=== PATIENT | female | born 1985 | race Caucasian/White ===

== ENCOUNTER 2016-06-18 16:58 | Emergency (ER) | payer MEDICAID ==
[~2016-06-18] VITALS: Ht 165.1 cm; Wt 49.9 kg
[~2016-06-18 16:58] MED LIST: ALBUAER3 IN; AZITTAB11 PO; CARI-277 PO; DEXTSYP35 PO; IBUP800T24 PO; LEVE500T3 PO; METH4PAK PO
[2016-06-18 17:27] VITALS: BP 128/77
== END 2016-06-18 17:36 | disposition home or self-care (01) ==
LOC: ER 17:09
DX: R56.9 Unspecified convulsions (principal); Z79.899 Other long term (current) drug therapy; F17.210 Nicotine dependence, cigarettes, uncomplicated; Z76.0 Encounter for issue of repeat prescription

== ENCOUNTER 2016-07-25 13:28 | Emergency (ER) | payer MEDICAID ==
[~2016-07-25] VITALS: Ht 165.1 cm; Wt 49.9 kg
[2016-07-25 14:26] VITALS: BP 120/56
== END 2016-07-25 14:57 | disposition home or self-care (01) ==
LOC: ER 13:37
DX: S16.1XXA Strain of muscle, fascia and tendon at neck level, initial encounter (principal); F17.210 Nicotine dependence, cigarettes, uncomplicated; I48.91 Unspecified atrial fibrillation; X58.XXXA Exposure to other specified factors, initial encounter; Y93.89 Activity, other specified; Y99.8 Other external cause status; Y92.89 Other specified places as the place of occurrence of the external cause

== ENCOUNTER 2016-08-12 20:30 | Emergency (ER) | payer MEDICAID ==
[~2016-08-12] VITALS: Ht 165.1 cm; Wt 49.9 kg
[2016-08-12 21:00] VITALS: BP 99/48
[2016-08-12] MEDS ORDERED: predniSONE 20 MG TAB PO ONE (23:30)
[2016-08-12] MEDS ORDERED: diphenhdrAMINE HCL 25 MG CAP PO ONE (23:30)
== END 2016-08-12 23:51 | disposition home or self-care (01) ==
LOC: ER 20:40
DX: S80.861A Insect bite (nonvenomous), right lower leg, initial encounter (principal); T78.40XA Allergy, unspecified, initial encounter; F17.210 Nicotine dependence, cigarettes, uncomplicated; L03.115 Cellulitis of right lower limb; I48.91 Unspecified atrial fibrillation; W57.XXXA Bitten or stung by nonvenomous insect and other nonvenomous arthropods, initial encounter; Y93.89 Activity, other specified; Y92.89 Other specified places as the place of occurrence of the external cause; Y99.8 Other external cause status
CPT/HCPCS: 99283; J7512

== ENCOUNTER 2017-02-28 15:40 | Emergency (ER) | payer MEDICAID ==
[~2017-02-28] VITALS: Ht 165.1 cm; Wt 50.8 kg
[2017-02-28 16:26] VITALS: BP 132/81
== END 2017-02-28 16:54 | disposition home or self-care (01) ==
LOC: ER 15:52
DX: G89.29 Other chronic pain (principal); M54.5 Low back pain; R56.9 Unspecified convulsions; F17.210 Nicotine dependence, cigarettes, uncomplicated; Z76.0 Encounter for issue of repeat prescription; Z79.899 Other long term (current) drug therapy

== ENCOUNTER 2017-08-23 12:32 | Emergency (ER) | payer MEDICAID | END 2017-08-23 12:51 | disposition left against medical advice (07) | LOC: ER 12:32 | DX: M54.9 Dorsalgia, unspecified (principal); Z53.21 Procedure and treatment not carried out due to patient leaving prior to being seen by health care provider ==

== ENCOUNTER 2018-02-27 14:36 | Emergency (ER) | payer MEDICAID ==
[~2018-02-27] VITALS: Ht 165.1 cm; Wt 57.2 kg
[2018-02-27 14:48] VITALS: BP 108/51
== END 2018-02-27 15:58 | disposition home or self-care (01) ==
LOC: ER 14:36
DX: G43.909 Migraine, unspecified, not intractable, without status migrainosus (principal); F41.9 Anxiety disorder, unspecified; F17.210 Nicotine dependence, cigarettes, uncomplicated; Z76.0 Encounter for issue of repeat prescription; Z79.899 Other long term (current) drug therapy

== ENCOUNTER 2018-05-06 15:56 | Emergency (ER) | payer MEDICAID ==
[~2018-05-06] VITALS: Ht 165.1 cm; Wt 54.4 kg
[2018-05-06 17:20] LABS: Basophils # (auto) 0 uL; Basophils % (auto) 0.7 % (0.0-2.0); Eosinophils # (auto) 0 uL; Eosinophils % (auto) 0.6 % (0.0-7.0); Hematocrit 43.6 % (36.0-46.0); Hemoglobin 14.8 g/dL (12.2-16.2); Lymphocytes # (auto) 1.2 uL; Lymphocytes % (auto) 20.1 % (10.0-50.0); Mean Corpuscular Hemoglobin 32.2 pg (28.0-32.0); Mean Corpuscular Hgb Conc. 33.9 g/dL (32.0-36.0); Mean Corpuscular Volume 95.1 fL (80.0-100.0); Monocytes # (auto) 0.5 uL; Monocytes % (auto) 7.8 % (0.0-12.0); Neutrophils # (auto) 4.3 uL; Neutrophils % (auto) 70.8 % (37.0-80.0); Platelet Count (auto) 280 10^3/uL (140-450); Red Blood Cells 4.59 10^6/uL (4.0-5.20); Red Cell Distribution Width 12.9 % (11.8-14.3); White Blood Cell 6.1 10^3/uL (4.4-10.8)
[2018-05-06 17:38] LABS: Alanine Aminotransferase 18 U/L (13-56); Albumin 4.2 g/dL (3.4-5.0); Anion Gap 10 (5-15); Aspartate Aminotransferase 11 U/L (15-37); BUN/Creatinine Ratio 18.8; Blood Urea Nitrogen 13 mg/dL (7-18); Calcium 8.1 mg/dL (8.5-10.1); Carbon Dioxide 24 mmol/L (21-32); Chloride 107 mmol/L (98-107); GFR African American > 60 mL/min; GFR Non-African American > 60 mL/min; Glucose 78 mg/dL (74-106); Magnesium 2.1 mg/dL (1.6-2.6); Potassium 3.5 mmol/L (3.5-5.1); Sodium 141 mmol/L (136-145)
[2018-05-06 17:43] LABS: Alkaline Phosphatase 75 U/L (45-117); Bilirubin, Total 0.3 mg/dL (0.2-1.0); Total Protein 7.9 g/dL (6.4-8.2)
[2018-05-06 18:15] VITALS: BP 119/75
[2018-05-06] MEDS ORDERED: SODIUM CHLORIDE 0.9% 1,000 ML IV ONE (20:30)
[2018-05-06] MEDS ORDERED: LEVETIRACETAM INJ 1,000 MG in D5W 5% 100 ML IV ONE (20:30)
[2018-05-06 20:45] LABS: Alcohol, Urine < 3.0 mg/dL (0-5); Amphetamine Screen, Urine POSITIVE (NEGATIVE); Barbiturate Scree,Urine NEGATIVE (NEGATIVE); Benzodiazephine Screen, Urine POSITIVE (NEGATIVE); Cannabinoid Screen, Urine NEGATIVE (NEGATIVE); Cocaine Screen, Urine NEGATIVE (NEGATIVE); Opiate Scree,Urine POSITIVE (NEGATIVE); Phencyclidine Screen, Urine NEGATIVE (NEGATIVE)
[2018-05-06 21:00] LABS: Urine Pregnacy Test Negative (Negative)
== END 2018-05-06 22:29 | disposition home or self-care (01) ==
LOC: ER 15:59
DX: G40.909 Epilepsy, unspecified, not intractable, without status epilepticus (principal); F15.10 Other stimulant abuse, uncomplicated; F17.210 Nicotine dependence, cigarettes, uncomplicated; F12.90 Cannabis use, unspecified, uncomplicated; Z91.14 Patient's other noncompliance with medication regimen
CPT/HCPCS: 36415; 70450; 72131; 80053; 80307; 81025; 82962; 83735; 84484; 85025; 93005; 94761; 96361; 96365; 99284; J1953; J7030; J7060

== ENCOUNTER 2018-08-18 12:40 | Emergency (ER) | payer MEDICAID ==
[~2018-08-18] VITALS: Ht 165.1 cm; Wt 54.4 kg
[2018-08-18 12:54] VITALS: BP 104/45
== END 2018-08-18 14:45 | disposition home or self-care (01) ==
LOC: ER 12:40
DX: K08.89 Other specified disorders of teeth and supporting structures (principal); Z53.21 Procedure and treatment not carried out due to patient leaving prior to being seen by health care provider

== ENCOUNTER 2018-10-14 16:11 | Emergency (ER) | payer MEDICAID ==
[~2018-10-14] VITALS: Ht 165.1 cm; Wt 54.4 kg
[2018-10-14 16:25] VITALS: BP 112/46
== END 2018-10-14 19:33 | disposition left against medical advice (07) ==
LOC: ER 16:18
DX: O20.8 Other hemorrhage in early pregnancy (principal); Z3A.00 Weeks of gestation of pregnancy not specified; Z53.21 Procedure and treatment not carried out due to patient leaving prior to being seen by health care provider

== ENCOUNTER 2018-10-24 14:35 | Emergency (ER) | payer MEDICAID ==
[~2018-10-24] VITALS: Ht 165.1 cm; Wt 62.6 kg
[2018-10-24 14:43] VITALS: BP 114/45
[2018-10-24 15:01] LABS: Urine WBC None Seen /hpf (0 - 5)
[2018-10-24 15:28] LABS: Basophils # (auto) 0 uL; Basophils % (auto) 0.7 % (0.0-2.0); Eosinophils # (auto) 0.1 uL; Hematocrit 36.2 % (36.0-46.0); Hemoglobin 12.4 g/dL (12.2-16.2); Lymphocytes # (auto) 1.5 uL; Lymphocytes % (auto) 26.2 % (10.0-50.0); Mean Corpuscular Hemoglobin 33.1 pg (28.0-32.0); Mean Corpuscular Hgb Conc. 34.3 g/dL (32.0-36.0); Mean Corpuscular Volume 96.4 fL (80.0-100.0); Monocytes # (auto) 0.4 uL; Monocytes % (auto) 7.1 % (0.0-12.0); Neutrophils # (auto) 3.6 uL; Nucleated Red Blood Cells % 0.1 %; Platelet Count (auto) 256 10^3/uL (140-450); Red Blood Cells 3.75 10^6/uL (4.0-5.20); White Blood Cell 5.6 10^3/uL (4.4-10.8)
[2018-10-24 15:45] LABS: Urine Bacteria NONE SEEN /hpf (None Seen); Urine Blood Negative /uL (Negative); Urine Mucus FEW (None Seen); Urine Specific Gravity 1.031 (1.001-1.035)
[2018-10-24] MEDS ORDERED: RHO (D) IMMUNE GLOBULIN 300 MCG INJ IM ONE (17:30)
== END 2018-10-24 18:26 | disposition home or self-care (01) ==
LOC: ER 14:35
DX: O46.91 Antepartum hemorrhage, unspecified, first trimester (principal); O26.891 Other specified pregnancy related conditions, first trimester; R10.9 Unspecified abdominal pain; Z3A.11 11 weeks gestation of pregnancy
CPT/HCPCS: 36415; 36430; 76801; 81001; 84702; 85025; 86901; 90384

== ENCOUNTER 2018-11-30 17:49 | Emergency (ER) | payer MEDICAID ==
[~2018-11-30] VITALS: Ht 165.1 cm; Wt 54.4 kg
[2018-11-30 18:18] VITALS: BP 113/54
== END 2018-11-30 23:57 | disposition left against medical advice (07) ==
LOC: ER 17:49
DX: M54.5 Low back pain (principal); Z53.21 Procedure and treatment not carried out due to patient leaving prior to being seen by health care provider

== ENCOUNTER 2019-03-08 17:59 | Emergency (ER) | payer MEDICAID ==
[~2019-03-08] VITALS: Ht 165.1 cm; Wt 54.4 kg
[2019-03-08 18:07] VITALS: BP 105/61
== END 2019-03-08 19:44 | disposition home or self-care (01) ==
LOC: ER 18:01
DX: O26.891 Other specified pregnancy related conditions, first trimester (principal); M65.4 Radial styloid tenosynovitis [de Quervain]; F41.9 Anxiety disorder, unspecified; Z79.1 Long term (current) use of non-steroidal anti-inflammatories (NSAID); Z79.899 Other long term (current) drug therapy; Z79.2 Long term (current) use of antibiotics; Z3A.12 12 weeks gestation of pregnancy
CPT/HCPCS: 29125

== ENCOUNTER 2019-08-26 07:57 | Emergency (ER) | payer MEDICAID ==
[~2019-08-26] VITALS: Ht 165.1 cm; Wt 59.0 kg
[2019-08-26 08:08] VITALS: BP 145/84
== END 2019-08-26 09:17 | disposition home or self-care (01) ==
LOC: ER 07:57
DX: S93.602A Unspecified sprain of left foot, initial encounter (principal); X58.XXXA Exposure to other specified factors, initial encounter; Y93.01 Activity, walking, marching and hiking; Y92.89 Other specified places as the place of occurrence of the external cause; Y99.8 Other external cause status
CPT/HCPCS: 73610; 73630

== ENCOUNTER 2020-05-18 16:28 | Emergency (ER) | payer MEDICAID ==
[~2020-05-18] VITALS: Ht 165.1 cm; Wt 54.4 kg
[~2020-05-18 16:28] MED LIST changes: -IBUP800T24 PO; +IBUP800T27 PO
[2020-05-18] MEDS ORDERED: ACETAMINOPHEN 325 MG TAB PO ONE (16:45)
[2020-05-18] MEDS ORDERED: ONDANSETRON HCL 4 MG/2 ML VIAL IV ONE (19:45)
[2020-05-18] MEDS ORDERED: fentaNYL CITRATE 100 MCG/2 ML VL IV ONE (19:45)
[2020-05-18] MEDS ORDERED: KETAMINE 50mg/ML 10ml Vial (500mg/10ml) IV ONE (20:00)
[2020-05-18] MEDS ORDERED: PROPOFOL 100 ML IV ONE (22:33)
[2020-05-18 23:04] VITALS: BP 120/75
[2020-05-18] MEDS ORDERED: PROPOFOL 10 MG/ML 20 ML IV ONE ×2 (23:30)
== END 2020-05-19 00:41 | disposition home or self-care (01) ==
LOC: ER 16:28
DX: S52.501A Unspecified fracture of the lower end of right radius, initial encounter for closed fracture (principal); Z79.899 Other long term (current) drug therapy; W01.0XXA Fall on same level from slipping, tripping and stumbling without subsequent striking against object, initial encounter; Y93.89 Activity, other specified; Y92.89 Other specified places as the place of occurrence of the external cause; Y99.8 Other external cause status
CPT/HCPCS: 73090; 73100; 96374; 96375; 99284; J2405; J2704; J3010